=== PATIENT | female | born 1990 ===

== ENCOUNTER 2018-03-21 05:36 | Emergency (ER) | payer MEDICAID ==
[~2018-03-21] VITALS: Ht 170.2 cm; Wt 67.5 kg
[~2018-03-21 05:36] MED LIST: DESM150S2 NAS; DIPH25CA61 PO; HYDR-3240 PO; PROM25TA10 PO; [UNRECOGNIZED DRUG - CODE] PO
[2018-03-21 05:37] VITALS: BP 153/99
== END 2018-03-21 06:18 | disposition home or self-care (01) ==
LOC: ED 06:12
DX: L03.113 Cellulitis of right upper limb (principal); Z88.0 Allergy status to penicillin
CPT/HCPCS: 99283

== ENCOUNTER 2018-10-05 12:28 | Emergency (ER) | payer MEDICAID, OTHER ==
[~2018-10-05] VITALS: Ht 170.2 cm; Wt 71.0 kg
[2018-10-05 12:58] VITALS: BP 143/83
== END 2018-10-05 14:41 | disposition home or self-care (01) ==
LOC: ED 14:33
DX: S83.91XA Sprain of unspecified site of right knee, initial encounter (principal); Z90.710 Acquired absence of both cervix and uterus; Z87.891 Personal history of nicotine dependence; X58.XXXA Exposure to other specified factors, initial encounter; Y93.89 Activity, other specified; Y92.89 Other specified places as the place of occurrence of the external cause; Y99.8 Other external cause status
CPT/HCPCS: 29505; 99283